=== PATIENT | female | born 1960 ===

== ENCOUNTER 2017-07-05 07:54 | Emergency (ER) | payer OTHER ==
[2017-07-05 07:59] VITALS: BP 124/81; PULSE 75; RESP 18; TEMP 98.4; O2SAT 98; BMI 34.8
--- NOTE | 2017-07-05 08:15 | C.PDOC ---
History Of Present Illness Patient is a 57 yo female who presents to the ED with a complaint of a sore throat for the past week. Patient states she had taken OTC cepacol with no relief. She reports symptoms are worsening as of last night with a subjective fever and non-productive cough. Denies SOB or difficulty swallowing. Time Seen by Provider: 07/05/17 08:08 Chief Complaint (Nursing): Cough, Cold, Congestion History Per: Patient History/Exam Limitations: no limitations Onset/Duration Of Symptoms: Days (sore throat x1 week. ) Current Symptoms Are (Timing): Still Present Location Of Pain: Throat Associated Symptoms: Fever (subjective. ), Sore Throat, Cough (non productive). denies: Vomiting, Diarrhea Ear Symptoms: Bilateral: None Recent travel outside of the [place]: No Past Medical History Reviewed: Historical Data, Nursing Documentation, Vital Signs Vital Signs: Last Vital Signs Temp 98.4 F 07/05/17 07:59 Pulse 75 07/05/17 07:59 Resp 18 07/05/17 07:59 BP 124/81 07/05/17 07:59 Pulse Ox 98 07/05/17 08:29 - Medical History PMH: Fractures (left wrist fx d/t fall 2013) Surgical History: Cholecystectomy (2 YEARS AGO PER PATIENT) Denies: Appendectomy (PT DENIES) - [facility] Procedures LAPAROSCOPIC CHOLECYSTECTOMY (04/08/15) LAPAROSCOPIC ROBOTIC ASSISTED PROCEDURE (04/08/15) OP RED-INT FIX RAD/ULNA (12/04/13) Family History: States: Unknown Family Hx - Social History Hx Tobacco Use: No Hx Alcohol Use: No Hx Substance Use: No - Immunization History Hx Tetanus Toxoid Vaccination: No Hx Influenza Vaccination: No Hx Pneumococcal Vaccination: No Review Of Systems Except As Marked, All Systems Reviewed And Found Negative. Constitutional: Positive for: Fever (subjective). Negative for: Chills ENT: Positive for: Throat Pain. Negative for: Ear Pain, Nose Congestion, Throat Swelling Cardiovascular: Negative for: Chest Pain, Palpitations Respiratory: Positive for: Cough. Negative for: Shortness of Breath, Other (no difficulty swallowing) Gastrointestinal: Negative for: Nausea, Vomiting Musculoskeletal: Negative for: Neck Pain Skin: Negative for: Rash Neurological: Negative for: Headache Physical Exam - Physical Exam Appears: Well, Non-toxic, No Acute Distress Skin: Normal Color, Warm, Dry Head: Atraumatic, Normacephalic Eye(s): bilateral: Normal Inspection, PERRL, EOMI Ear(s): Bilateral: Normal Nose: Normal Oral Mucosa: Moist Tongue: Normal Appearing, No Swelling Lips: Normal Appearing, No Swelling Throat: Erythema, No Exudate, No Drooling, No Mass Neck: Normal ROM Chest: Symmetrical Cardiovascular: Rhythm Regular, No Murmur Respiratory: Normal Breath Sounds, No Rales, No Rhonchi, No Wheezing Gastrointestinal/Abdominal: Soft, No Tenderness Extremity: Bilateral: Atraumatic, Normal Color And Temperature, Normal ROM Neurological/Psych: Oriented x3, Normal Speech, Other (no focal defecits. ) Gait: Steady ED Course And Treatment O2 Sat by Pulse Oximetry: 98 (room air) Pulse Ox Interpretation: Normal Medical Decision Making Medical Decision Making: Patient with complaints of sore throat for one week and no improvement with OTC medications. Patient has no fever, appears well and nontoxic. Exam shows no signs of peritonisllar abscess. Will treat with Amoxicillin. Disposition Counseled Patient/Family Regarding: Need For Followup, Rx Given - Disposition Referrals: Damian Munoz [facility] [Outside] Disposition: HOME/ ROUTINE Disposition Time: 08:28 Condition: GOOD Additional Instructions: [place] receta fue enviada a la farm[facility] [place] el antibitico dos veces al da [place] Tylenol o Motrin alternando cada 4-6 horas para la fiebre 100.4F o ms alto. Descanse y kamla muchos lquidos para prevenir la deshidratacin. Prescriptions: Amoxicillin 500 mg PO BID #20 tablet Instructions: Pharyngitis (ED) Forms: [facility] (Indonesian), Work Excuse Print Language: GREENLANDIC - POA Present On Arrival: None - Clinical Impression Clinical Impression: Pharyngitis - Scribe Statement The provider has reviewed the documentation as recorded by the Scribe Taylor Allen All medical record entries made by the Scribe were at my direction and personally dictated by me. I have reviewed the chart and agree that the record accurately reflects my personal performance of the history, physical exam, medical decision making, and the department course for this patient. I have also personally directed, reviewed, and agree with the discharge instructions and disposition.
== END 2017-07-05 08:30 | disposition home or self-care (01) ==
LOC: C.ER 07:54
DX: J02.9 Acute pharyngitis, unspecified (principal)